=== PATIENT | male | born 1985 | race African-American/Black ===

== ENCOUNTER 2017-02-11 17:27 | Emergency (ER) | payer SELFPAY ==
[2017-02-11 17:33] VITALS: BP 152/79; PULSE 74; TEMP 98.9; BMI 27.0
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
[2017-02-11] MEDS ORDERED: KETOROLAC TROMETHAMINE 60 MG/2 ML VIAL ONE (18:20)
[2017-02-11] MEDS ORDERED: OXYCODONE/APAP 5/325MG COMBO TABLET ONE (18:24)
== END 2017-02-11 18:51 | disposition home or self-care (01) ==
LOC: JERFT 17:27
DX: S92.354A Nondisplaced fracture of fifth metatarsal bone, right foot, initial encounter for closed fracture (principal); X50.9XXA Other and unspecified overexertion or strenuous movements or postures, initial encounter; Y93.67 Activity, basketball; Y92.310 Basketball court as the place of occurrence of the external cause
CPT/HCPCS: 73610-TC-RT; 73630-TC-RT; 99281-25

== ENCOUNTER 2017-03-01 17:44 | Emergency (ER) | payer OTHER ==
[2017-03-01 17:59] VITALS: BMI 27.0
[2017-03-01 18:00] VITALS: BP 119/82; PULSE 88; TEMP 98.2
[2017-03-01] MEDS ORDERED: IBUPROFEN 600 MG TABLET (FP) PO ONE (19:04)
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
== END 2017-03-01 19:50 | disposition home or self-care (01) ==
LOC: JERFT 17:44
DX: S93.601A Unspecified sprain of right foot, initial encounter (principal); W03.XXXA Other fall on same level due to collision with another person, initial encounter; W10.8XXA Fall (on) (from) other stairs and steps, initial encounter; Y93.89 Activity, other specified; Y92.89 Other specified places as the place of occurrence of the external cause
CPT/HCPCS: 73630-TC-RT; 99281-25

== ENCOUNTER 2019-05-02 13:17 | Emergency (ER) | payer SELFPAY ==
[2019-05-02] MEDS ORDERED: IBUPROFEN 400 MG TABLET (FP) PO ONE (13:30)
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
[2019-05-02 13:31] VITALS: BP 117/70; PULSE 75; TEMP 98.2; BMI 27.4
[2019-05-02] MEDS ORDERED: DIPHTH,PERTUSS(ACELL),TET 0.5 ML DISP.SYRIN IM ONE (14:39)
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
== END 2019-05-02 15:05 | disposition left against medical advice (07) ==
LOC: JERFT 13:17
CPT/HCPCS: 71046-TC-FY; 99281-25

== ENCOUNTER 2020-04-16 15:47 | Emergency (ER) | payer OTHER ==
[2020-04-16 16:00] VITALS: BP 166/98; PULSE 77; TEMP 98.3; BMI 31.4
[2020-04-16] MEDS ORDERED: KETOROLAC TROMETHAMINE 30 MG/1 ML VIAL IM ONE (16:04)
[2020-04-16] MEDS ORDERED: ACETAMINOPHEN 325 MG TABLET (FP) PO ONE (16:05)
[2020-04-16] MEDS ORDERED: KETOROLAC TROMETHAMINE 30 MG/1 ML VIAL ONE (16:11)
[2020-04-16] MEDS ORDERED: ACETAMINOPHEN 325 MG TABLET (FP) ONE (16:11)
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
== END 2020-04-16 16:25 | disposition home or self-care (01) ==
LOC: JER 15:47
PROC: 3E0233Z Introduction of Anti-inflammatory into Muscle, Percutaneous Approach (ICD-10-PCS; principal; 2020-04-16)
DX: K08.89 Other specified disorders of teeth and supporting structures (principal)
CPT/HCPCS: 99284-25

== ENCOUNTER 2020-12-04 21:29 | Emergency (ER) | payer OTHER ==
[2020-12-04 21:41] VITALS: BP 148/83; PULSE 86; TEMP 97.7; BMI 26.4
[2020-12-04 23:06] LABS: URINE APPEARANCE CLEAR; URINE BILIRUBIN NEGATIVE (NEGATIVE); URINE COLOR YELLOW; URINE GLUCOSE (UA) NEGATIVE (NEGATIVE); URINE KETONE TRACE (NEGATIVE); URINE LEUK ESTERASE NEGATIVE (NEGATIVE); URINE NITRITE NEGATIVE (NEGATIVE); URINE PROTEIN TRACE (NEGATIVE)
== END 2020-12-04 23:04 | disposition home or self-care (01) ==
LOC: JER 21:29 → JERFT 21:29 → JER 23:04
DX: L73.1 Pseudofolliculitis barbae (principal); B37.2 Candidiasis of skin and nail
CPT/HCPCS: 36415; 81003; 87491; 87591; 99283-25

== ENCOUNTER 2020-12-16 08:45 | Emergency (ER) | payer OTHER ==
[2020-12-16 09:01] VITALS: BP 143/80; PULSE 68; TEMP 98.2; BMI 30.9
[2020-12-16] MEDS ORDERED: SODIUM CHLORIDE 1,000 ML IV STA (09:54)
[2020-12-16 10:33] LABS: BASO % 0.4 % (0-2.0); EOS % 1.2 % (0-4.5); HEMATOCRIT 41.6 % (35.4-49); HEMOGLOBIN 14.1 GM/dL (11.7-16.9); LYMPH % 32.7 % (8-40); MCH 30.7 pg (25.7-33.7); MCHC 33.8 g/dl (32.0-35.9); MEAN PLT VOLUME 8.8 fl (7.5-11.1); MONO % 7.3 % (3.8-10.2); NEUT % 58.4 % (42.8-82.8); PLATELET COUNT 147 K/MM3 (134-434); RBC 4.58 M/mm3 (4.00-5.60); RDW 15.2 % (11.9-15.9); WHITE BLOOD COUNT 5.5 K/mm3 (4.0-10.0)
[2020-12-16 10:53] LABS: ALBUMIN 4.1 g/dl (3.4-5.0); CALCIUM 8.9 mg/dL (8.5-10.1)
[2020-12-16 10:54] LABS: BLOOD UREA NITROGEN 13.5 mg/dL (7-18)
[2020-12-16 10:59] LABS: BILIRUBIN,TOTAL 0.8 mg/dL (0.2-1); TOT PROT 8.1 g/dl (6.4-8.2)
== END 2020-12-16 10:45 | disposition left against medical advice (07) ==
LOC: JER 08:45
PROC: 3E0337Z Introduction of Electrolytic and Water Balance Substance into Peripheral Vein, Percutaneous Approach (ICD-10-PCS; principal; 2020-12-16)
DX: R19.7 Diarrhea, unspecified (principal); R53.1 Weakness
CPT/HCPCS: 36415; 80053; 84443; 85025; 99284-25

== ENCOUNTER 2022-12-03 18:21 | Emergency (ER) | payer OTHER ==
[2022-12-03 18:25] VITALS: BP 133/86; PULSE 95; RESP 18; TEMP 97.7; BMI 29.7
[2022-12-03] MEDS ORDERED: IBUPROFEN 600 MG TABLET (FP) PO ONE ×2 (19:27→19:30)
== END 2022-12-03 19:31 | disposition home or self-care (01) ==
LOC: JERFT 18:21 → JER 18:21 → JERFT 19:31
DX: H66.92 Otitis media, unspecified, left ear (principal); H92.02 Otalgia, left ear; R07.0 Pain in throat
CPT/HCPCS: 99283-25

== ENCOUNTER 2023-05-18 08:07 | Emergency (ER) | payer OTHER ==
[2023-05-18 08:22] VITALS: BP 138/72; PULSE 78; RESP 20; TEMP 98.3; BMI 31.6
[2023-05-18 11:58] LABS: BASO % 0.2 % (0-2.0); EOS % 0.6 % (0-4.5); HEMATOCRIT 37.8 % (35.4-49); HEMOGLOBIN 12.5 GM/dL (11.7-16.9); LYMPH % 21.6 % (8-40); MCH 29.4 pg (25.7-33.7); MCHC 33.1 g/dl (32.0-35.9); MEAN CELL VOLUME 88.8 fl (80-96); MEAN PLT VOLUME 8.5 fl (7.5-11.1); MONO % 8.9 % (3.8-10.2); NEUT % 68.7 % (42.8-82.8); PLATELET COUNT 180 10^3/uL (134-434); RBC 4.26 M/mm3 (4.00-5.60); RDW 14.7 % (11.9-15.9); WHITE BLOOD COUNT 7.1 K/mm3 (4.0-10.0)
[2023-05-18 12:14] LABS: CHLORIDE 106 mmol/L (98-107); POTASSIUM 4.1 mmol/L (3.5-5.1); SODIUM 139 mmol/L (136-145)
[2023-05-18 12:18] LABS: ALBUMIN 3.7 g/dl (3.4-5.0); ANION GAP 2 MMOL/L (8-16); BLOOD UREA NITROGEN 21.4 mg/dL (7-18); CO2 31 mmol/L (21-32); GLUCOSE,RANDOM 98 mg/dL (74-106)
[2023-05-18 12:21] LABS: CREATININE 1.1 mg/dL (0.55-1.3); SGOT/AST 37 U/L (15-37); SGPT/ALT 50 U/L (13-61)
[2023-05-18 12:22] LABS: BILIRUBIN,TOTAL 0.4 mg/dL (0.2-1)
[2023-05-18 12:23] LABS: ALK PHOS 77 U/L (45-117)
== END 2023-05-18 14:31 | disposition home or self-care (01) ==
LOC: JER 08:07
DX: M25.511 Pain in right shoulder (principal); M79.604 Pain in right leg; R40.0 Somnolence; F10.129 Alcohol abuse with intoxication, unspecified; W01.0XXA Fall on same level from slipping, tripping and stumbling without subsequent striking against object, initial encounter; Y92.410 Unspecified street and highway as the place of occurrence of the external cause; Y93.01 Activity, walking, marching and hiking; Y90.0 Blood alcohol level of less than 20 mg/100 ml
CPT/HCPCS: 36415; 70450-TC; 71045-TC-FY; 72125-TC; 72170-TC-FY; 80053; 80307; 84484; 85025; 93005; 93010; 99285-25

== ENCOUNTER 2023-07-21 23:39 | Observation (INO) | payer OTHER ==
[2023-07-21 23:45] VITALS: BMI 26.4
[2023-07-22] MEDS ORDERED: SODIUM CHLORIDE 0.9% 500 ML INFUS.BAG IV ONE (00:41)
[2023-07-22] MEDS ORDERED: ASPIRIN 81 MG CHEWABLE TABLETS PO ONE (00:43)
[2023-07-22] MEDS ORDERED: ASPIRIN 81 MG CHEWABLE TABLETS ONE (00:53)
[2023-07-22 01:19] LABS: BASO % 0.3 % (0-2.0); EOS % 1.9 % (0-4.5); HEMATOCRIT 37.5 % (35.4-49); HEMOGLOBIN 12.2 GM/dL (11.7-16.9); LYMPH % 40.2 % (8-40); MCHC 32.7 g/dl (32.0-35.9); MEAN CELL VOLUME 91.7 fl (80-96); MEAN PLT VOLUME 8.3 fl (7.5-11.1); MONO % 7.7 % (3.8-10.2); NEUT % 49.9 % (42.8-82.8); PLATELET COUNT 125 10^3/uL (134-434); RBC 4.09 M/mm3 (4.00-5.60); RDW 14.4 % (11.9-15.9); WHITE BLOOD COUNT 5.8 K/mm3 (4.0-10.0)
[2023-07-22 01:21] LABS: INR 1.03 (0.83-1.09); PROTHROMBIN TIME (PATIENT) 11.9 SEC (9.7-13.0)
[2023-07-22 01:36] LABS: POTASSIUM 3.5 mmol/L (3.5-5.1)
[2023-07-22 01:37] LABS: CALCIUM 8.4 mg/dL (8.5-10.1)
[2023-07-22 01:38] LABS: ALBUMIN 3.4 g/dl (3.4-5.0); BLOOD UREA NITROGEN 18.4 mg/dL (7-18)
[2023-07-22 01:42] LABS: CREATININE 0.8 mg/dL (0.55-1.3)
[2023-07-22 01:43] LABS: BILIRUBIN,TOTAL 0.3 mg/dL (0.2-1); TOT PROT 6.8 g/dl (6.4-8.2)
[2023-07-22 02:48] LABS: PH,URINE 5.5 (5.0-8.0); URINE APPEARANCE CLEAR; URINE BILIRUBIN NEGATIVE (NEGATIVE); URINE COLOR YELLOW; URINE GLUCOSE (UA) NEGATIVE (NEGATIVE); URINE KETONE TRACE (NEGATIVE); URINE LEUK ESTERASE NEGATIVE (NEGATIVE); URINE NITRITE NEGATIVE (NEGATIVE); URINE PROTEIN NEGATIVE (NEGATIVE)
[2023-07-22 02:52] LABS: COCAINE, UR NEGATIVE (NEGATIVE); METHADONE, UR NEGATIVE (NEGATIVE); OPIATES, URI NEGATIVE (NEGATIVE); URINE AMPHETAMINES NEGATIVE (NEGATIVE); URINE BARBITURATES NEGATIVE (NEGATIVE); URINE BENZODIAZEPINES NEGATIVE (NEGATIVE)
[2023-07-22 03:11] LABS: PHENCYCLIDINE,URINE POSITIVE (NEGATIVE)
[2023-07-22] MEDS ORDERED: ACETAMINOPHEN 325 MG TABLET (FP) PO ONE (06:34)
[2023-07-22] MEDS ORDERED: ACETAMINOPHEN 325 MG TABLET (FP) ONE (06:35)
[2023-07-22] MEDS ORDERED: KETOROLAC TROMETHAMINE 30 MG/1 ML VIAL IVPUSH ONE (06:45)
[2023-07-22] MEDS ORDERED: MAGNESIUM SULF 50% (8.12 MEQ/2 ML-1 GM VIAL) IVPB ONE (06:45)
[2023-07-22] MEDS ORDERED: FOLIC ACID INJECTION - 1 MG, THIAMINE HCL 100 MG, MULTIVIT INJECTION ADULT 10 ML in SOD... IVPB ONE (06:46)
[2023-07-22] MEDS ORDERED: KETOROLAC TROMETHAMINE 30 MG/1 ML VIAL ONE (08:17)
[2023-07-22] MEDS ORDERED: KETOROLAC TROMETHAMINE 15 MG/ML VIAL IVPUSH PRN (09:08)
[2023-07-22] MEDS ORDERED: MAGNESIUM SULFATE IN WATER 2 GM/50 ML IVPB IVPB ONE (09:44)
[2023-07-22] MEDS ORDERED: HEPARIN NA (PORCINE) 5,000 UNITS/ML 1ML VIAL ONE (10:23)
[2023-07-22] MEDS: HEPARIN NA (PORCINE) 5,000 UNITS/ML 1ML VIAL SQ SCH ×2 (10:53→21:39)
[2023-07-23 08:33] LABS: BASO % 0.4 % (0-2.0); EOS % 1.2 % (0-4.5); HEMATOCRIT 38.7 % (35.4-49); HEMOGLOBIN 12.7 GM/dL (11.7-16.9); LYMPH % 33.4 % (8-40); MCH 30.1 pg (25.7-33.7); MCHC 32.8 g/dl (32.0-35.9); MEAN CELL VOLUME 91.7 fl (80-96); MEAN PLT VOLUME 8.6 fl (7.5-11.1); MONO % 6.9 % (3.8-10.2); NEUT % 58.1 % (42.8-82.8); PLATELET COUNT 129 10^3/uL (134-434); RBC 4.22 M/mm3 (4.00-5.60); RDW 14.3 % (11.9-15.9); WHITE BLOOD COUNT 4.4 K/mm3 (4.0-10.0)
[2023-07-23 08:56] LABS: CALCIUM 8.2 mg/dL (8.5-10.1)
[2023-07-23 08:57] LABS: BLOOD UREA NITROGEN 17.7 mg/dL (7-18)
[2023-07-23] MEDS: HEPARIN NA (PORCINE) 5,000 UNITS/ML 1ML VIAL SQ SCH ×2 (09:22→21:09)
[2023-07-23] MEDS ORDERED: ACETAMINOPHEN 1000 MG/100 ML BAG IVPB PRN (11:30)
[2023-07-23] MEDS ORDERED: KETOROLAC TROMETHAMINE 15 MG/ML VIAL IVPUSH PRN (11:32)
[2023-07-23] MEDS: ACETAMINOPHEN 500 MG TABLET (FP) PO PRN (21:09)
[2023-07-24 06:40] LABS: MCH 30.4 pg (25.7-33.7); MCHC 33.3 g/dl (32.0-35.9); MEAN CELL VOLUME 91.4 fl (80-96); MEAN PLT VOLUME 8.4 fl (7.5-11.1); PLATELET COUNT 136 10^3/uL (134-434); RBC 4.26 M/mm3 (4.00-5.60); RDW 14.6 % (11.9-15.9); WHITE BLOOD COUNT 3.9 K/mm3 (4.0-10.0)
[2023-07-24 07:19] LABS: POTASSIUM 3.9 mmol/L (3.5-5.1)
[2023-07-24] MEDS: ACETAMINOPHEN 500 MG TABLET (FP) PO PRN (08:57)
[2023-07-24] MEDS: HEPARIN NA (PORCINE) 5,000 UNITS/ML 1ML VIAL SQ SCH (08:59)
[2023-07-24 14:19] VITALS: PULSE 80
[2023-07-24 18:30] VITALS: BP 129/74; RESP 20; TEMP 98.6
== END 2023-07-24 18:05 | disposition home or self-care (01) ==
LOC: JER 23:39 → JERBED 07-22 05:55 → J4S 07-22 13:05
PROVIDERS: ADMIT Internal Medicine; ATTEND Internal Medicine
PROC: 3E023GC Introduction of Other Therapeutic Substance into Muscle, Percutaneous Approach (ICD-10-PCS; principal; 2023-07-22)
PROC: 3E0333Z Introduction of Anti-inflammatory into Peripheral Vein, Percutaneous Approach (ICD-10-PCS; 2023-07-22)
PROC: 3E033GC Introduction of Other Therapeutic Substance into Peripheral Vein, Percutaneous Approach (ICD-10-PCS; 2023-07-22)
PROC: 3E0337Z Introduction of Electrolytic and Water Balance Substance into Peripheral Vein, Percutaneous Approach (ICD-10-PCS; 2023-07-22)
DX: R55 Syncope and collapse (principal); R94.31 Abnormal electrocardiogram [ECG] [EKG]; F12.90 Cannabis use, unspecified, uncomplicated; J45.909 Unspecified asthma, uncomplicated; Z59.00 Homelessness unspecified; Z87.828 Personal history of other (healed) physical injury and trauma; F19.90 Other psychoactive substance use, unspecified, uncomplicated; F17.200 Nicotine dependence, unspecified, uncomplicated
CPT/HCPCS: 36415; 70450-TC; 71045-TC-FY; 72100-TC-FY; 73590-TC-RT-FY; 73610-TC-RT-FY; 73630-TC-RT-FY; 80048; 80053; 80307; 81003; 84484; 85025; 85027; 85610; 87086; 93005; 93010; 93306-TC; 93970-TC; 96365; 96372; 96375; 96376; 97116-GP; 97161-GP; 99285-25; G0378; J1644